=== PATIENT | male | born 1990 | race African-American/Black ===

== ENCOUNTER 2024-11-09 13:04 | Emergency (ER) | payer MEDICAID, MEDICARE ==
[~2024-11-09] VITALS: Ht 177.8 cm; Wt 86.0 kg
[2024-11-09 13:06] VITALS: O2SAT 100
[2024-11-09] MEDS: TETANUS, DIPHTHERIA, PERTUSSIS VAC/PF 0.5ML (>10YR OLD) IM ONE (13:58)
[2024-11-09] MEDS: IBUPROFEN 600MG TABLET PO ONE (14:00)
[2024-11-09] MEDS: LIDOCAINE HCL/PF 1% 10 MG/ML 5ML VIAL INFIL ONE ×2 (14:00→14:37)
[2024-11-09] MEDS: BACITRACIN ZINC OINT UDPKT TOP ONE (14:00)
[2024-11-09] MEDS ORDERED: BO1 TP (14:36)
[2024-11-09] MEDS ORDERED: IBUP-2029 MT (14:36)
[2024-11-09 14:42] VITALS: BP 124/87; PULSE 62; RESP 15; TEMP 36.9; O2SAT 100
== END 2024-11-09 14:40 | disposition home or self-care (01) ==
LOC: ER 13:04
DX: S51.811A Laceration without foreign body of right forearm, initial encounter (principal); X58.XXXA Exposure to other specified factors, initial encounter; Y93.89 Activity, other specified; Y92.89 Other specified places as the place of occurrence of the external cause; Y99.8 Other external cause status
CPT/HCPCS: 90715; 12004; 90471; 99283; J2003; Z7610 ×3

== ENCOUNTER 2024-11-26 13:43 | Emergency (ER) | payer MEDICAID, OTHER ==
[~2024-11-26] VITALS: Ht 182.9 cm; Wt 74.8 kg
[~2024-11-26 13:43] MED LIST: BO1 TP; IBUP-2029 MT
[2024-11-26 13:47] VITALS: O2SAT 99
[2024-11-26] MEDS ORDERED: IBUP-2028 MT (15:38)
[2024-11-26] MEDS ORDERED: SULF1TAB48 MT (15:38)
[2024-11-26] MEDS: BACITRACIN ZINC OINT UDPKT TOP ONE (15:53)
[2024-11-26] MEDS: IBUPROFEN 600MG TABLET PO ONE (15:53)
[2024-11-26 15:56] VITALS: BP 120/80; PULSE 65; RESP 16; TEMP 36.8; O2SAT 99
== END 2024-11-26 16:02 | disposition home or self-care (01) ==
LOC: ER 13:43
DX: S51.811D Laceration without foreign body of right forearm, subsequent encounter (principal); Z48.02 Encounter for removal of sutures; Z79.899 Other long term (current) drug therapy; X58.XXXD Exposure to other specified factors, subsequent encounter
CPT/HCPCS: 99283; Z7610 ×2